=== PATIENT | male | born 1990 | race African-American/Black ===

== ENCOUNTER 2019-06-16 16:08 | Emergency (ER) | payer MEDICAID ==
[~2019-06-16] VITALS: Ht 180.3 cm; Wt 83.9 kg
[2019-06-16 16:20] VITALS: BP 134/83
--- NOTE | 2019-06-16 16:20 | NUR ---
ED Nurse Note: patient ambulated to ed c/o congestion and cough x4 days.
[2019-06-16] MEDS ORDERED: VENLAFAXINE HCL25 MG ORAL (16:24)
[2019-06-16] MEDS ORDERED: GABAPENTIN100 MG ORAL (16:24)
[2019-06-16] MEDS ORDERED: ZYPREXA2.5 MG ORAL (16:24)
--- NOTE | 2019-06-16 16:38 | Emergency Room Report ---
History of Present Illness General Chief Complaint: Upper Respiratory Illness Source: Patient Present Illness HPI 28-year-old male with history of heavy tobacco smoke here complaining of 4 days of cough with phlegm production as well as congestion. Denies any recent travel , fever and chills, abdominal pain, nausea vomiting. Complains of minimal wheezing. Has not taken medication for symptom relief. Denies chest pain, palpitation, headache and dizziness at this time. Allergies: Coded Allergies: No Known Allergies (Unverified , 06/16/19) Patient History Past Medical History: see triage record Past Surgical History: none Pertinent Family History: none Social History: Reports: smoking Immunizations: UTD Reviewed Nursing Documentation: PMH: Agreed; PSxH: Agreed Nursing Documentation-PMH Past Medical History: No History, Except For Review of Systems All Other Systems: negative except mentioned in HPI Physical Exam Vital Signs Date Time Temp Pulse Resp B/P (MAP) Pulse Ox O2 Delivery O2 Flow Rate FiO2 06/16/19 16:20 98.6 100 16 134/83 (100) 95 Room Air Sp02 EP Interpretation: reviewed, normal General Appearance: no apparent distress, alert, GCS 15, non-toxic Head: normocephalic, atraumatic Eyes: bilateral eye normal inspection, bilateral eye PERRL ENT: hearing grossly normal, normal pharynx, no angioedema, normal voice Neck: full range of motion, supple/symm/no masses Respiratory: chest non-tender, lungs clear, normal breath sounds, no rhonchi, no respiratory distress, no retraction, no accessory muscle use, no wheezing, speaking full sentences Cardiovascular #1: regular rate, rhythm, no edema, no murmur Gastrointestinal: normal bowel sounds, non tender, soft, non-distended, no guarding, no rebound Genitourinary: no CVA tenderness Musculoskeletal: back normal, no calf tenderness Neurologic: alert, motor strength/tone normal, oriented x3, sensory intact, responsive, speech normal Psychiatric: judgement/insight normal, memory normal, mood/affect normal, no suicidal/homicidal ideation Skin: no rash Lymphatic: no adenopathy Medical Decision Making PA Attestation All my diagnosis and treatment plans were reviewed ad discussed with my supervising physician Dr. Francisco Diagnostic Impression: Primary Impression: Pneumonitis ER Course 28-year-old male with history of heavy tobacco smoke here complaining of 4 days of cough with phlegm production as well as congestion. Denies any recent travel , fever and chills, abdominal pain, nausea vomiting. Complains of minimal wheezing. Has not taken medication for symptom relief. Denies chest pain, palpitation, headache and dizziness at this time. Ddx considered but are not limited to: bronchitis, PNA, URI viral, bacterial bronchitis, pneumonitis Vital signs: are WNL, pt. is afebrile H&PE are most consistent with: Pneumonitis ORDERS: Azithromycin, albuterol, guaifenesin ED INTERVENTIONS: None required at this time. DISCHARGE: At this time pt. is stable for d/c to home. Will provide printed patient care instructions, and any necessary prescriptions. Care plan and follow up instructions have been discussed with the patient prior to discharge. No x-ray necessary at this time as lungs are clear to auscultation and patient has a tobacco smoke status and bacterial infections most likely. If worsening symptoms return to the emergency room Last Vital Signs Date Time Temp Pulse Resp B/P (MAP) Pulse Ox O2 Delivery O2 Flow Rate FiO2 06/16/19 16:20 98.6 100 16 134/83 (100) 95 Room Air Disposition: HOME, SELF-CARE Condition: Stable Scripts Fluticasone Propionate (Flonase Allergy Relief) 9.9 Ml [place].susp 2 SPRAYS NS BID, #10 ML Prov: BrucemogJeff castro PA 06/16/19 Albuterol Sulfate (VENTOLIN HFA) 18 Gm Hfa.aer.ad 2 PUFFS INH EVERY 6 HOURS, #18 GM 0 Refills Prov: BrucemogJeff castro PA 06/16/19 Guaifenesin* (GUAIFENESIN*) 100 Mg/5 Ml Liquid 15 ML ORAL Q6H, #120 ML 0 Refills Prov: Jeff Lawrence PA 06/16/19 Azithromycin* (ZITHROMAX*) 250 Mg Tablet 250 MG ORAL DAILY, #6 TAB 0 Refills Take two tables once daily for 1 day, then one tablet once daily for 4 days. Prov: BrucemogJeff castro PA 06/16/19 Patient Instructions: Pneumonitis Additional Instructions: Take medication as directed, follow-up with your primary care provider, if worsening symptoms return to the emergency room, avoid smoking. Jeff Lawrence Jun 16, 2019 16:38
[2019-06-16] MEDS ORDERED: FLONASE ALLERG9.9 ML NS (16:40)
[2019-06-16] MEDS ORDERED: ZITHROMAX250 MG ORAL (16:40)
[2019-06-16] MEDS ORDERED: GUAIFENESI100 MG/5 M ORAL (16:40)
[2019-06-16] MEDS ORDERED: VENTOLIN HFA18 GM INH (16:40)
[2019-06-16 16:45] VITALS: BP 134/83
--- NOTE | 2019-06-16 16:45 | NUR ---
ER DISCHARGE NOTE: Patient is cleared to be discharged per ERMD, pt is aox4, on room air, with stable vital signs. pt was given dc and prescription instructions, pt was able to verbalize understanding, pt id band . pt is able to ambulate with steady gait. pt took all belongings.
== END 2019-06-16 16:45 | disposition home or self-care (01) ==
LOC: EMR 16:45
DX: J18.9 Pneumonia, unspecified organism (principal)
CPT/HCPCS: 99282

== ENCOUNTER 2019-09-28 10:59 | Emergency (ER) | payer MEDICAID ==
[~2019-09-28] VITALS: Ht 170.2 cm; Wt 68.0 kg
[2019-09-28 10:59] VITALS: BP 160/90
[~2019-09-28 10:59] MED LIST: FLONASE ALLERG9.9 ML NS; GABAPENTIN100 MG ORAL; GUAIFENESI100 MG/5 M ORAL; VENLAFAXINE HCL25 MG ORAL; VENTOLIN HFA18 GM INH; ZITHROMAX250 MG ORAL; ZYPREXA2.5 MG ORAL
--- NOTE | 2019-09-28 10:59 | NUR ---
ED Nurse Note: Patient BIBDenise RA[address] from [address] c/o bilateral leg pain. Pt able to walk with steady gait. Has hx of hip and knee replacement x 4 years ago. Pt is also requesting for Neurontin refill. JAIRO at bedside.
[2019-09-28] MEDS ORDERED: GABAPENTIN600 MG ORAL (11:06)
[2019-09-28] MEDS ORDERED: NEURONTIN300 MG ORAL (11:07)
--- NOTE | 2019-09-28 11:13 | Emergency Room Report ---
History of Present Illness General Chief Complaint: Pain Source: Patient Present Illness HPI Disclaimer: Please note that this report is being documented using [employer] technology. This can lead to erroneous entry secondary to incorrect interpretation by the dictating instrument. HPI: 28-year-old male with a history of right hip and knee replacement presents for evaluation of leg pain requesting medication refill. The patient was brought in by ambulance stating that he could not ambulate while trying to get to the bus stop. He denies any fall or injury. States he has chronic pain in the lower right lower extremity and sometimes will lock on him when he is without his gabapentin. He has been without his gabapentin for several weeks because he has not been able to get to a pharmacy from the [facility] he is currently living out. He states that he is able to ambulate but is painful without the Neurontin. He is requesting a refill. States he takes 2400 mg daily. Denies any trauma, lower extremity swelling, chest pain, shortness of breath, focal weakness or other changes in his health otherwise. PMH: Neuropathy PSH: Right hip replacement, right knee replacement Allergies: Denies Social Hx: Denies Allergies: Coded Allergies: No Known Allergies (Unverified , 06/16/19) COVID-19 Screening Contact w/high risk pt: No Recent Travel to affected area: No Experienced COVID-19 symptoms?: No COVID-19 Testing performed MEDICAL ASSISTANT OB GYN: No Review of Systems All Other Systems: negative except mentioned in HPI Physical Exam Vital Signs Date Time Temp Pulse Resp B/P (MAP) Pulse Ox O2 Delivery O2 Flow Rate FiO2 09/28/19 10:54 98.2 98 19 160/90 (113) 97 Room Air General: Awake and alert, no acute distress HEENT: NC/AT. EOMI. Resp: Normal work of breathing Skin: Intact. No abrasions, laceration or rash over the exposed skin MSK: Normal tone and bulk. Moving all extremities. No obvious deformity. Pelvis stable. No tenderness on AP or lateral compression. Range of motion on passive testing in the hip and knee are intact. No obvious signs of trauma. Neuro: Awake and alert. Mentating appropriately Medical Decision Making Diagnostic Impression: Primary Impression: Medication refill ER Course Is a 28-year-old male history of neuropathy from right lower extremity injury arrives requesting a refill of his gabapentin. Patient denies any new injury, difficulty with weakness, swelling and I find no external signs of trauma or change in his health. States he has no other complaints aside from needing more gabapentin. I explained to him that was not comfortable writing for such a high dose of gabapentin but he did accept a lower dose on a short-term supply until he can follow-up with his PMD clinic. Cures report was completed and did not show recent controlled substance medication prescriptions. Patient had no other complaints at this time and requested a taxi to get home. 1 will be provided for him. He is instructed to return with new or worsening symptoms. Last Vital Signs Date Time Temp Pulse Resp B/P (MAP) Pulse Ox O2 Delivery O2 Flow Rate FiO2 09/28/19 10:59 98.2 98 19 160/90 97 Room Air Disposition: HOME, SELF-CARE Condition: Stable Scripts Gabapentin (Neurontin) 300 Mg Capsule 300 MG ORAL THREE TIMES A DAY, #15 CAP 0 Refills Prov: Dawit Gardner MD 09/28/19 Patient Instructions: Medicine Refill at the Emergency Department Additional Instructions: Please follow-up with your primary care doctor in the next 1 to 3 days to discuss this emergency department visit and for reevaluation. If you have any new or worsening symptoms please return to the emergency department for reevaluation. Please note that this report is being documented using [employer] game platform technology. This can lead to erroneous entry secondary to incorrect interpretation by the dictating instrument. Dawit Gardner MD Sep 28, 2019 11:13
[2019-09-28 11:16] VITALS: BP 146/87
--- NOTE | 2019-09-28 11:16 | NUR ---
ED Nurse Note: Pt cleared by ERMD for discharge. DC instructions/prescription was given and explained to pt and verbalized understanding of teachings. All medical deviecs such as ID band removed. Pt is AAO x4, ambulatory and left with all personal belongings. Taxi voucher was provided.
== END 2019-09-28 11:16 | disposition home or self-care (01) ==
LOC: EDBD 10:59 → EMR 11:14
DX: Z76.0 Encounter for issue of repeat prescription (principal); Z96.641 Presence of right artificial hip joint; Z96.651 Presence of right artificial knee joint; G89.29 Other chronic pain; G62.9 Polyneuropathy, unspecified
CPT/HCPCS: 99282